=== PATIENT | female | born 2000 | race African-American/Black ===

== ENCOUNTER 2023-06-23 18:57 | Inpatient (IN) | payer OTHER ==
[2023-06-23] MEDS ORDERED: hydrALAZINE 20 MG/ML VIAL SLOW IVP PRN ×2 (20:36→20:49)
[2023-06-23] MEDS ORDERED: Ondansetron PF 4 MG/2 ML Vial IVP PRN (20:36)
[2023-06-23] MEDS ORDERED: Promethazine HCl 25 MG/ML VIAL IM PRN (20:36)
[2023-06-23] MEDS ORDERED: Lidocaine 1% (PF) 30 ML VIAL SC PRN (20:36)
[2023-06-23] MEDS ORDERED: Carboprost 250 MCG/ML AMP IM PRN (20:37)
[2023-06-23] MEDS ORDERED: Methylergonovine 0.2 MG/ML VIAL IM PRN (20:37)
[2023-06-23] MEDS ORDERED: Diphenoxylate HCl/Atropine Tablet PO PRN (20:37)
[2023-06-23] MEDS ORDERED: Misoprostol 200 MCG TAB PR PRN (20:37)
[2023-06-23] MEDS ORDERED: Tranexamic Acid 1,000 MG/10 ML VIAL IVP PRN (20:37)
[2023-06-23] MEDS ORDERED: Acetaminophen 500 MG TAB PO PRN (20:37)
[2023-06-23] MEDS ORDERED: Labetalol HCl 100 MG/20 ML VIAL SLOW IVP PRN ×3 (20:49)
[2023-06-23] MEDS ORDERED: Ibuprofen 800 MG TAB PO PRN (20:49)
[2023-06-23 21:06] LABS: Hematocrit 31.9 % (34.9-44.5); Hemoglobin 10.2 g/dL (12.0-15.5); Mean Corpuscular Hemoglobin 26.6 pg (27.0-33.0); Mean Corpuscular Volume 83.1 fl (81.6-98.3); Mean Platelet Volume 10.5 fl (7.4-10.4); Platelet Count 384 10x3/uL (150-450); RBC Distribution Width 15.1 % (11.5-14.5); Red Blood Cell (RBC) Count 3.84 10x6/uL (3.90-5.03)
[2023-06-23] MEDS: Misoprostol 100 MCG TAB VAG SCH (22:28)
[2023-06-23 23:03] LABS: Syphilis Antibody Nonreactive (Nonreactive); Syphilis Antibody Index 0.05 S/CO (<1.00 Non-Reactive)
[2023-06-23 23:04] LABS: HBSAg Index 0.23 S/CO (0-0.99); Hep B Surf Ag - L&D Non-Reactive S/CO (NonReactive)
[2023-06-23 23:14] VITALS: BMI 43.3
[2023-06-24] MEDS: fentaNYL 50 mcg/mL 1 mL Vial SLOW IVP PRN (07:43)
[2023-06-24 08:56] LABS: Amphetamine Not Detected (NotDetected); Barbiturates Screen Not Detected (NotDetected); Benzodiazepine Screen Not Detected (NotDetected); Cocaine Metabolite Screen Not Detected (NotDetected); Methadone Not Detected (NotDetected); Methamphetamine Not Detected (NotDetected); Opiate Screen Not Detected (NotDetected); Oxycodone Screen Not Detected (NotDetected); Phencyclidine (PCP) Not Detected (NotDetected); THC/Cannabinoid Screen Not Detected (NotDetected); Tricyclic Screen Not Detected (NotDetected)
[2023-06-24] MEDS ORDERED: Penicillin G Potassium 5 MILL.UNITS in Sodium Chloride 0.9% 100 ML IVPB SCH (14:15)
[2023-06-24] MEDS ORDERED: Penicillin G 2.5 MILL.units 2.5 MILL.UNITS in Premix 1 BAG IVPB SCH (14:15)
[2023-06-24] MEDS: fentaNYL/Ropivacaine Epidural 100 ML ONE (14:52)
[2023-06-24] MEDS: Penicillin G Potassium 5 MILL.UNITS in Sodium Chloride 0.9% 100 ML IVPB SCH (14:58)
[2023-06-24] MEDS ORDERED: Acetaminophen 325 MG TAB PO PRN (15:08)
[2023-06-24] MEDS ORDERED: Promethazine HCl 25 MG/ML VIAL IM PRN (15:08)
[2023-06-24] MEDS ORDERED: Lactated Ringer's 500 ML IV PRN (15:08)
[2023-06-24] MEDS ORDERED: Naloxone HCl 0.4 mg/ml Vial IVP PRN ×2 (15:08)
[2023-06-24] MEDS ORDERED: Ondansetron PF 4 MG/2 ML Vial IVP PRN (15:08)
[2023-06-24] MEDS ORDERED: diphenhydrAMINE 50 MG/ML VIAL IVP PRN (15:08)
[2023-06-24] MEDS ORDERED: ePHEDrine Sulfate 50 MG/10 ML VIAL SLOW IVP PRN (15:08)
[2023-06-24] MEDS ORDERED: Moisturizing Cream (Eucerin) 113 GM JAR TOP PRN (15:08)
[2023-06-24] MEDS ORDERED: Communication Order-Pharmacy FS SCH (15:15)
[2023-06-24] MEDS: Penicillin G 2.5 MILL.units 2.5 MILL.UNITS in Premix 1 BAG IVPB SCH (19:01)
[2023-06-24] MEDS: Oxytocin 30 units/NS 500 ML 500 ML IV SCH (19:58)
[2023-06-24] MEDS ORDERED: Misoprostol 100 MCG TAB VAG SCH ×2 (22:30)
[2023-06-25] MEDS: fentaNYL 2 mcg/Ropivacaine 0.2% Epidural 100 ML CADD EPIDURAL SCH (00:17)
[2023-06-25] MEDS: CEFAZOLIN 2 GM VIAL ONE (02:40)
[2023-06-25] MEDS: Azithromycin 500 MG VIAL ONE ×2 (02:40→08:32)
[2023-06-25] MEDS ORDERED: Bicitra 30 ML UDCUP PO PRN (03:11)
[2023-06-25] MEDS ORDERED: Famotidine/PF 20 mg/2ml Vial SLOW IVP PRN (03:11)
[2023-06-25] MEDS ORDERED: Azithromycin 500 MG in Sodium Chloride 0.9% 250 ML 250 ML IVPB SCH (03:15)
[2023-06-25] MEDS ORDERED: CEFAZOLIN 2 GM in Sodium Chloride 0.9% 100 ML IVPB SCH (03:15)
[2023-06-25] MEDS ORDERED: Acetaminophen 325 MG TAB PO PRN (03:22)
[2023-06-25] MEDS ORDERED: Ondansetron PF 4 MG/2 ML Vial IVP PRN ×4 (03:22→04:11)
[2023-06-25] MEDS ORDERED: hydrALAZINE 20 MG/ML VIAL SLOW IVP PRN (03:22)
[2023-06-25] MEDS ORDERED: Simethicone Chewable 80 MG TAB PO PRN (03:22)
[2023-06-25] MEDS ORDERED: Misoprostol 200 MCG TAB PR PRN (03:22)
[2023-06-25] MEDS ORDERED: Lanolin Ointment 7 GM TUBE TOP PRN (03:22)
[2023-06-25] MEDS ORDERED: Moisturizing Cream (Eucerin) 113 GM JAR TOP PRN (03:24)
[2023-06-25] MEDS ORDERED: Morphine 4 MG/ML VIAL SLOW IVP PRN (03:24)
[2023-06-25] MEDS ORDERED: diphenhydrAMINE 50 MG/ML VIAL IVP PRN ×2 (03:24→04:11)
[2023-06-25] MEDS ORDERED: Naloxone HCl 0.4 mg/ml Vial IV PRN ×2 (03:24→04:11)
[2023-06-25] MEDS ORDERED: Promethazine HCl 25 MG/ML VIAL IM PRN ×2 (03:24→04:11)
[2023-06-25] MEDS ORDERED: Promethazine HCl 25 MG SUPP PR PRN (03:24)
[2023-06-25] MEDS ORDERED: Ketorolac Tromethamine 30 MG (1 mL) VIAL IVP PRN (03:24)
[2023-06-25] MEDS ORDERED: fentaNYL 50 mcg/mL 1 mL Vial SLOW IVP PRN (03:24)
[2023-06-25] MEDS ORDERED: Naloxone HCl 0.4 mg/ml Vial IVP PRN ×2 (03:24)
[2023-06-25] MEDS ORDERED: Meperidine HCl/PF 25 MG (1 mL) VIAL SLOW IVP PRN (03:24)
[2023-06-25 03:26] LABS: Analyzer IN Cardio CS NICU; RapidComm Collect By CBN
[2023-06-25 03:27] LABS: Analyzer IN Cardio CS NICU; RapidComm Collect By CBN; pH (Cord, venous) 7.347 (7.250-7.350)
[2023-06-25] MEDS ORDERED: Ketorolac Tromethamine 30 MG (1 mL) VIAL IVP SCH (03:30)
[2023-06-25] MEDS ORDERED: Communication Order-Pharmacy FS SCH ×2 (03:30→04:15)
[2023-06-25] MEDS ORDERED: Oxytocin 30 units/NS 500 ML 500 ML IV SCH (03:30)
[2023-06-25] MEDS ORDERED: FENTANYL 500 MCG/10 ML VIAL 2,000 MCG in Sodium Chloride 0.9% 60 ML IV PRN (04:11)
[2023-06-25] MEDS ORDERED: diphenhydrAMINE 25 MG CAP PO PRN (04:11)
[2023-06-25] MEDS ORDERED: diphenhydrAMINE 50 MG/ML VIAL IM PRN (04:11)
[2023-06-25] MEDS: FENTANYL 500 MCG/10 ML VIAL 1,000 MCG in Sodium Chloride 0.9% 30 ML IV PRN (04:49)
[2023-06-25] MEDS: Prenatal Vitamin 1 TAB PO SCH (08:02)
[2023-06-25] MEDS: Docusate 100 MG CAP PO SCH (08:02)
[2023-06-25] MEDS: Morphine PF 10 MG/10 ML VIAL ONE (08:31)
[2023-06-25] MEDS: Dexamethasone 4 mg/ml Vial ONE (08:31)
[2023-06-25] MEDS: Oxytocin 10 UNITS/ML VIAL ONE (08:31)
[2023-06-25] MEDS: Ondansetron PF 4 MG/2 ML Vial ONE (08:31)
[2023-06-25] MEDS: fentaNYL 50 mcg/mL 1 mL Vial ONE (08:32)
[2023-06-25] MEDS: Dexmedetomidine 200 MCG/2 ML VIAL ONE (08:32)
[2023-06-25] MEDS: PHENYLEPHRINE-NS 100 MCG/ML 10 ML SYRINGE ONE (08:32)
[2023-06-25] MEDS: Sodium Chloride 0.9% 10 ML ONE (08:32)
[2023-06-25] MEDS: Midazolam HCl 2 mg/2 ml Vial ONE (08:32)
[2023-06-25] MEDS: PROPOFOL 20 ML ONE (08:33)
[2023-06-25] MEDS: Lactated Ringer's 1,000 ML IV SCH ×2 (08:33→13:41)
[2023-06-25] MEDS: Ferrous Sulfate 325 MG TAB PO SCH (08:34)
[2023-06-25] MEDS: Penicillin G Potassium 5 MILL.UNITS VIAL ONE (13:40)
[2023-06-25] MEDS: Misoprostol 100 MCG TAB ONE (13:42)
[2023-06-25] MEDS: HYDROcodone/Acetaminophen 5/325 mg Tablet PO PRN (19:09)
[2023-06-25] MEDS: Ibuprofen 800 MG TAB PO SCH (21:30)
[2023-06-26 05:56] LABS: Hematocrit 26.4 % (34.9-44.5); Hemoglobin 8.3 g/dL (12.0-15.5); Mean Corpuscular HGB CONC 31.4 g/dL (32.0-36.0); Mean Corpuscular Hemoglobin 26.8 pg (27.0-33.0); Mean Corpuscular Volume 85.2 fl (81.6-98.3); Mean Platelet Volume 10.4 fl (7.4-10.4); Platelet Count 319 10x3/uL (150-450); RBC Distribution Width 15.3 % (11.5-14.5); White Blood Cell (WBC) Count 10.1 10x3/uL (3.5-10.5)
[2023-06-26] MEDS: HYDROcodone/Acetaminophen 5/325 mg Tablet PO PRN (15:13)
[2023-06-27] MEDS: Boostrix 0.5 ML (Tdap) VIAL (>/=7 yrs of age) IM ONE (07:21)
[2023-06-27 08:48] VITALS: TEMP 98.1
[2023-06-27 12:25] VITALS: BP 143/80
== END 2023-06-27 14:05 | disposition home or self-care (01) | DRG 788 ==
LOC: CSHLD 18:57 → CSHPP 06-25 06:30
PROVIDERS: ADMIT Obstetrics & Gynecology; ATTEND Obstetrics & Gynecology
PROC: 3E0P7VZ Introduction of Hormone into Female Reproductive, Via Natural or Artificial Opening (ICD-10-PCS; 2023-06-23)
PROC: 10H07YZ Insertion of Other Device into Products of Conception, Via Natural or Artificial Opening (ICD-10-PCS; 2023-06-24)
PROC: 10D00Z1 Extraction of Products of Conception, Low, Open Approach (ICD-10-PCS; principal; 2023-06-25)
DX: O13.4 Gestational [pregnancy-induced] hypertension without significant proteinuria, complicating childbirth (principal); Z3A.38 38 weeks gestation of pregnancy; Z37.0 Single live birth; O99.824 Streptococcus B carrier state complicating childbirth; O99.214 Obesity complicating childbirth; O76 Abnormality in fetal heart rate and rhythm complicating labor and delivery; Z82.49 Family history of ischemic heart disease and other diseases of the circulatory system
CPT/HCPCS: 36415; 51702; 80306; 82805; 85027; 86780; 86850; 86900; 86901; 87340; J0456; J1100; J2250; J2274; J2405; J2540; J2590; J2704; J3010; J3490